=== PATIENT | male | born 1975 | race Caucasian/White ===

== ENCOUNTER 2016-10-21 11:25 | Emergency (ER) | payer OTHER ==
[~2016-10-21] VITALS: Ht 182.9 cm; Wt 81.8 kg
[~2016-10-21 11:25] MED LIST: AMOX500T PO; HYDR-3533 PO
[2016-10-21 11:26] VITALS: BP 129/72; PULSE 67; RESP 16; TEMP 97.8; O2SAT 98
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
[2016-10-21] MEDS ORDERED: ORPHENADRINE INJ 60 MG/2 ML AMP IM ONE (13:15)
[2016-10-21] MEDS ORDERED: KETOROLAC TROMETHAMINE 60 MG/2 ML (IM) VIAL IM ONE (13:15)
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
[2016-10-21] MEDS ORDERED: ROBA500T PO (14:36)
== END 2016-10-21 14:47 | disposition home or self-care (01) ==
LOC: NEPB 11:25
DX: S46.911A Strain of unspecified muscle, fascia and tendon at shoulder and upper arm level, right arm, initial encounter (principal); Z72.0 Tobacco use; V43.12XA Car passenger injured in collision with other type car in nontraffic accident, initial encounter; Y99.8 Other external cause status
CPT/HCPCS: 73030; 96372; 99283; J1885; J2360

== ENCOUNTER 2016-12-12 14:14 | Emergency (ER) | payer SELFPAY ==
[~2016-12-12] VITALS: Ht 182.9 cm; Wt 82.0 kg
[~2016-12-12 14:14] MED LIST changes: -AMOX500T PO; -HYDR-3533 PO; +ROBA500T PO
[2016-12-12 14:16] VITALS: BP 129/71; PULSE 78; RESP 20; TEMP 98.6; O2SAT 97
--- NOTE | 2016-12-12 14:20 | PD ---
Physical Exam Time Seen by Provider: 14:18 Narrative Pt presents to the emergency department for evaluation of skin lesions on right lower leg for 3 weeks. States symptoms are about the same over the past 3 weeks , there was some discharge however this has stopped. C/o pain at the site. Not on antibiotics. VSS. Patient awaiting bed placement. Data Data Last Documented VS Vital Signs Date Time Temp Pulse Resp B/P Pulse Ox O2 Delivery O2 Flow Rate FiO2 12/12/16 14:16 98.6 78 20 129/71 97 Room Air MDM Supervised Visit with JACE: Jocelyn Bui Dec 12, 2016 14:20
[2016-12-12] MEDS ORDERED: CLINDAMYCIN PHOS 900 MG/6 ML VIAL IM ONE (14:30)
--- NOTE | 2016-12-12 14:40 | PD ---
HPI Chief Complaint: Bite or Sting Time Seen by Provider: 14:34 Travel History International Travel<30 days: No Contact w/Intl Traveler<30days: No Traveled to known affect area: No History of Present Illness HPI Patient is a 41-year-old male presenting to the emergency room for evaluation of a possible insect bite, skin infection to his right lower leg. Patient believes he was bit by a spider 3 weeks ago. Initially it started out as small insect bites, patient states he picked at them and scratched them. After that they started to get larger, more tender, swollen and painful. Patient did not actually see himself get bit by a spider. He denies any fever, chills, nausea, vomiting, headache, shortness of breath. He reports the pain as an 8 out of 10 and describes the sore. Patient denies any IV drug use. Patient has been applying Neosporin and bandages to wounds, despite this the area has worsened PFSH Past Medical History Medical History: Denies Significant Hx Diminished Hearing: No Social History Alcohol Use: Yes Tobacco Use: Yes Substance Use: No Allergies-Medications (Allergen,Severity, Reaction): Coded Allergies: Ibuprofen (Verified Allergy, Unknown, 12/12/16) Reported Meds & Prescriptions Reported Meds & Active Scripts Active Tylenol-Codeine #3 (Acetaminophen-Codeine) 300-30 mg Tab 1 Tab PO Q4H PRN Mupirocin Topical (Mupirocin) 2 % Oint 1 Applic TOPICAL BID Keflex (Cephalexin) 500 Mg Cap 500 Mg PO Q12H 10 Days Bactrim DS (Sulfamethoxazole-Trimethoprim) 800-160 Mg Tab 1 Tab PO BID Robaxin (Methocarbamol) 500 Mg Tab 500 Mg PO QID PRN Review of Systems Except as stated in HPI: all other systems reviewed are Neg General / Constitutional: No: Fever, Chills HENT: No: Headaches Cardiovascular: No: Chest Pain or Discomfort Respiratory: No: Shortness of Breath Gastrointestinal: No: Nausea, Abdominal Pain Musculoskeletal: Positive: Myalgias, Edema, Pain Skin: Positive Change in Pigmentation, Positive Lesions Physical Exam Narrative GENERAL: Well-nourished, well-developed patient. SKIN: Focused skin assessment warm/dry. There are 2 blackened lesions to the lateral aspect of the right lower leg approximately 2 cm with surrounding induration. There is another 2 cm black area on the medial aspect of the right lower leg. Purulent drainage expressed from the site. Moderately tender to palpation and warm to touch around areas that are blackened. HEAD: Normocephalic. EYES: No scleral icterus. No injection or drainage. NECK: Supple, trachea midline. No JVD or lymphadenopathy. CARDIOVASCULAR: Regular rate and rhythm without murmurs, gallops, or rubs. RESPIRATORY: Breath sounds equal bilaterally. No accessory muscle use. GASTROINTESTINAL: Abdomen soft, non-tender, nondistended. MUSCULOSKELETAL: No cyanosis, edema noted to the right lower leg. Negative Homans sign. Patient is neurovascularly intact. BACK: Nontender without obvious deformity. No CVA tenderness. Data Data Last Documented VS Vital Signs Date Time Temp Pulse Resp B/P Pulse Ox O2 Delivery O2 Flow Rate FiO2 12/12/16 14:16 98.6 78 20 129/71 97 Room Air Orders Complete Blood Count With Diff (12/12/16 14:29) Wound Culture And Gram Stain (12/12/16 14:29) Tibia/Fibula (Ap/Lat) (12/12/16 ) Blood Culture (12/12/16 14:29) Basic Metabolic Panel (Bmp) (12/12/16 14:29) Sulfamet-Trimeth Ds 800-160 Mg (Bactrim (12/12/16 15:15) Cephalexin (Keflex) (12/12/16 15:15) Labs Laboratory Tests Test 12/12/16 15:05 White Blood Count 12.6 TH/MM3 Red Blood Count 5.54 MIL/MM3 Hemoglobin 17.5 GM/DL Hematocrit 51.4 % Mean Corpuscular Volume 92.8 FL Mean Corpuscular Hemoglobin 31.6 PG Mean Corpuscular Hemoglobin 34.1 % Concent Red Cell Distribution Width 13.9 % Platelet Count 242 TH/MM3 Mean Platelet Volume 8.4 FL Neutrophils (%) (Auto) 71.7 % Lymphocytes (%) (Auto) 14.5 % Monocytes (%) (Auto) 11.4 % Eosinophils (%) (Auto) 1.2 % Basophils (%) (Auto) 1.2 % Neutrophils # (Auto) 9.0 TH/MM3 Lymphocytes # (Auto) 1.8 TH/MM3 Monocytes # (Auto) 1.4 TH/MM3 Eosinophils # (Auto) 0.2 TH/MM3 Basophils # (Auto) 0.2 TH/MM3 CBC Comment DIFF FINAL Differential Comment Sodium Level 141 MEQ/L Potassium Level 4.1 MEQ/L Chloride Level 107 MEQ/L Carbon Dioxide Level 26.5 MEQ/L Anion Gap 8 MEQ/L Blood Urea Nitrogen 8 MG/DL Creatinine 1.11 MG/DL Estimat Glomerular Filtration 73 ML/MIN Rate Random Glucose 90 MG/DL Calcium Level 9.3 MG/DL MDM Medical Decision Making Medical Screen Exam Complete: Yes Emergency Medical Condition: Yes Interpretation(s) Vital Signs Date Time Temp Pulse Resp B/P Pulse Ox O2 Delivery O2 Flow Rate FiO2 12/12/16 14:16 98.6 78 20 129/71 97 Room Air Differential Diagnosis Cellulitis versus abscess versus osteomyelitis versus other Narrative Course Patient is a 41-year-old male presenting to the emergency department for evaluation of 3 weeks of worsening skin infection to his right lower leg secondary to possible insect bites. Patient was manipulating the insect bites after the first occurred likely causing a secondary bacterial infection. Purulent drainage expressed and a wound culture was obtained. We'll obtain a baseline CBC and blood cultures, patient will be given antibiotics in the emergency department. Patient is not at risk for DVT, there was negative Homans sign, despite swelling in the right ankle to lower calf area. Patient's vital signs are stable, he is afebrile currently. X-ray shows no soft tissue abnormality. There is a sclerotic lesion noted at the tibial metaphysis, radiologist recommending follow-up. CBC with a mildly elevated white count at 12.6 with left shift. Chemistry is unremarkable Patient was encouraged to return to emergency department for any new or worsening symptoms. He was advised to follow-up with a primary care provider. He was encouraged to complete full course of antibiotics as directed, elevate extremity, apply mupirocin ointment twice daily and cover with nonocclusive dressing. He was advised that if wound culture required a different antibiotic he would be notified. Additionally he was advised that blood cultures were positive he would be advised to return to emergency department. Patient verbalized understanding of these instructions. Patient is stable for discharge. Diagnosis Primary Impression: Cellulitis and abscess of leg Referrals: Primary Care Physician 1 week Patient Instructions: Cellulitis (ED), General Instructions Additional Instructions: Complete full course of antibiotics as directed Apply prescribed topical antibiotic ointment twice daily, keep wounds clean and dry, cover with nonocclusive dressing Return to emergency department for any new or worsening symptoms Follow-up with your primary doctor Follow-up with a primary doctor to have repeat imaging of your right lower leg performed due to a bony lesion noted on radiologist's report. Med/Other Pt SpecificInfo: Prescription(s) given Scripts Acetaminophen-Codeine (Tylenol-Codeine #3)300-30 mg Tab1 Tab PO Q4H PRN (PAIN) # 12 TAB Ref 0 Prov:Love Goodman MD 12/12/16 Mupirocin Topical 2 % Oint1 Applic TOPICAL BID #22 GM Ref 0 Prov:Michelle Pichardo 12/12/16 Cephalexin (Keflex)500 Mg [id number] Mg PO Q12H 10 Days Ref 0 Prov:Michelle Pichardo 12/12/16 Sulfamethoxazole-Trimethoprim (Bactrim DS)800-160 Mg Tab1 Tab PO BID #20 TAB Ref 0 Prov:Michelle Pichardo 12/12/16 Disposition: 01 DISCHARGE HOME Condition: Stable Michelle Pichardo Dec 12, 2016 14:40
[2016-12-12] MEDS ORDERED: SULFAMETHOXAZOLE-TRIMETHOPRIM DS 800-160 MG TAB PO ONE (15:15)
[2016-12-12] MEDS ORDERED: CEPHALEXIN MONOHYDRATE 500 MG CAP PO ONE (15:15)
[2016-12-12 15:18] LABS: BASOPHIL # 0.2 TH/MM3 (0-0.2); BASOPHIL % 1.2 % (0.0-2.0); EOSINOPHIL # 0.2 TH/MM3 (0-0.4); EOSINOPHIL % 1.2 % (0.0-4.0); HEMATOCRIT 51.4 % (39.0-51.0); HEMO FLAGS DIFF FINAL; LYMPH % 14.5 % (9.0-44.0); LYMPHOCYTE # 1.8 TH/MM3 (1.0-4.8); MEAN CELL VOLUME 92.8 FL (80.0-100.0); MEAN CORPUSCULAR HEMOGLOBIN 31.6 PG (27.0-34.0); MEAN CORPUSCULAR HGB CONC 34.1 % (32.0-36.0); MONO % 11.4 % (0.0-8.0); NEUT % 71.7 % (16.0-70.0); PLATELET COUNT 242 TH/MM3 (150-450); RED BLOOD COUNT 5.54 MIL/MM3 (4.50-5.90); RED CELL DISTRIBUTION WIDTH 13.9 % (11.6-17.2); WHITE BLOOD COUNT 12.6 TH/MM3 (4.0-11.0)
[2016-12-12] MEDS ORDERED: CEPH-460 PO (15:19)
[2016-12-12] MEDS ORDERED: MUPI2OIN TOPICAL (15:19)
[2016-12-12] MEDS ORDERED: BACT800T5 PO (15:19)
[2016-12-12 15:35] LABS: BICARBONATE 26.5 MEQ/L (21.0-32.0); POTASSIUM 4.1 MEQ/L (3.5-5.1)
[2016-12-12] MEDS ORDERED: TYLETAB34 PO (15:48)
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
== END 2016-12-12 16:27 | disposition home or self-care (01) ==
LOC: NEPK 14:14
DX: L02.415 Cutaneous abscess of right lower limb (principal); B95.0 Streptococcus, group A, as the cause of diseases classified elsewhere; B95.61 Methicillin susceptible Staphylococcus aureus infection as the cause of diseases classified elsewhere
CPT/HCPCS: 73590; 80048; 85025; 86403; 87040; 87070; 87186; 87205; 99283

== ENCOUNTER 2016-12-30 15:20 | Emergency (ER) | payer OTHER ==
[~2016-12-30] VITALS: Ht 182.9 cm; Wt 84.0 kg
[~2016-12-30 15:20] MED LIST changes: +BACT800T5 PO; +CEPH-460 PO; +MUPI2OIN TOPICAL; +TYLETAB34 PO
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
[2016-12-30] MEDS ORDERED: MORPHINE SULFATE 4 MG/ML INJ IV PUSH ONE (16:15)
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
[2016-12-30 17:32] VITALS: BP 125/70; PULSE 71; RESP 12; O2SAT 97
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
[2016-12-30 18:11] LABS: AUTOMATED NEUTROPHIL # 11.2 TH/MM3 (1.8-7.7); BASOPHIL # 0.1 TH/MM3 (0-0.2); BASOPHIL % 0.4 % (0.0-2.0); EOSINOPHIL # 0.1 TH/MM3 (0-0.4); EOSINOPHIL % 0.4 % (0.0-4.0); HEMATOCRIT 48.4 % (39.0-51.0); HEMO FLAGS DIFF FINAL; LYMPH % 17.9 % (9.0-44.0); LYMPHOCYTE # 2.9 TH/MM3 (1.0-4.8); MEAN CELL VOLUME 93.1 FL (80.0-100.0); MEAN CORPUSCULAR HEMOGLOBIN 31.5 PG (27.0-34.0); MEAN CORPUSCULAR HGB CONC 33.9 % (32.0-36.0); MONO % 12.2 % (0.0-8.0); NEUT % 69.1 % (16.0-70.0); PLATELET COUNT 197 TH/MM3 (150-450); RED CELL DISTRIBUTION WIDTH 13.2 % (11.6-17.2); WHITE BLOOD COUNT 16.2 TH/MM3 (4.0-11.0)
[2016-12-30 18:16] VITALS: BP 124/64; PULSE 70; RESP 15; O2SAT 99
[2016-12-30 18:22] LABS: APTT (PATIENT) 28.1 SEC (24.3-30.1); PROTHROMBIN TIME - PATIENT 10.5 SEC (9.8-11.6)
[2016-12-30 18:29] LABS: BICARBONATE 24.8 MEQ/L (21.0-32.0); POTASSIUM 3.7 MEQ/L (3.5-5.1)
[2016-12-30] MEDS ORDERED: IOHEXOL 350 MG/ML 10 ML VIAL (for RAD DIAG) IV ONE (19:08)
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
[2016-12-30 19:46] VITALS: BP 127/72; PULSE 78; RESP 17; O2SAT 98
[2016-12-30] MEDS ORDERED: HYDR-3533 PO (19:51)
[2016-12-30] MEDS ORDERED: CYCL5TAB PO (19:51)
--- NOTE | 2016-12-30 19:52 | PD ---
Data Data Last Documented VS Vital Signs Date Time Temp Pulse Resp B/P Pulse Ox O2 Delivery O2 Flow Rate FiO2 12/30/16 18:16 70 15 124/64 99 Room Air Orders Complete Blood Count With Diff (12/30/16 15:55) Basic Metabolic Panel (Bmp) (12/30/16 15:55) Act Partial Throm Time (Ptt) (12/30/16 15:55) Prothrombin Time / Inr (Pt) (12/30/16 15:55) Type And Screen (12/30/16 15:55) Ct Abd/Pel W Iv Contrast(Rout) (12/30/16 ) Ct Lumb Spine W/O Contrast (12/30/16 ) Knee, Complete (4vws) (12/30/16 ) Ankle, Complete (Mzo4bpd) (12/30/16 ) Ankle, Complete ([id number]) (12/30/16 ) Urinalysis - C+S If Indicated (12/30/16 16:10) Ct Brain W/O Iv Contrast(Rout) (12/30/16 ) Ct Cerv Spine W/O Contrast (12/30/16 ) Ct Facial Bones W/O Iv Cont (12/30/16 ) Chest, Pa & Lat (12/30/16 ) Morphine Inj (Morphine Inj) (12/30/16 16:15) Tibia/Fibula (Ap/Lat) (12/30/16 ) Iohexol 350 Inj (Omnipaque 350 Inj) (12/30/16 19:08) Labs Laboratory Tests Test 12/30/16 17:42 White Blood Count 16.2 TH/MM3 Red Blood Count 5.20 MIL/MM3 Hemoglobin 16.4 GM/DL Hematocrit 48.4 % Mean Corpuscular Volume 93.1 FL Mean Corpuscular Hemoglobin 31.5 PG Mean Corpuscular Hemoglobin 33.9 % Concent Red Cell Distribution Width 13.2 % Platelet Count 197 TH/MM3 Mean Platelet Volume 8.6 FL Neutrophils (%) (Auto) 69.1 % Lymphocytes (%) (Auto) 17.9 % Monocytes (%) (Auto) 12.2 % Eosinophils (%) (Auto) 0.4 % Basophils (%) (Auto) 0.4 % Neutrophils # (Auto) 11.2 TH/MM3 Lymphocytes # (Auto) 2.9 TH/MM3 Monocytes # (Auto) 2.0 TH/MM3 Eosinophils # (Auto) 0.1 TH/MM3 Basophils # (Auto) 0.1 TH/MM3 CBC Comment DIFF FINAL Differential Comment Prothrombin Time 10.5 SEC Prothromb Time International 1.0 RATIO Ratio Activated Partial 28.1 SEC Thromboplast Time Sodium Level 138 MEQ/L Potassium Level 3.7 MEQ/L Chloride Level 105 MEQ/L Carbon Dioxide Level 24.8 MEQ/L Anion Gap 8 MEQ/L Blood Urea Nitrogen 8 MG/DL Creatinine 0.96 MG/DL Estimat Glomerular Filtration 87 ML/MIN Rate Random Glucose 78 MG/DL Calcium Level 8.5 MG/DL Blood Type O POSITIVE Antibody Screen NEGATIVE Blood Bank Comment [facility] Medical Record Reviewed: Yes Supervised Visit with JACE: No Interpretation(s) Last Impressions Tibia/Fibula X-Ray 12/30/16 0000 Signed Impressions: Service Date/Time: Friday, December 30, 2016 16:26 - CONCLUSION: No definite fracture is seen for technique. Yasmin Mccullough MD Maxillofacial CT 12/30/16 0000 Signed Impressions: Service Date/Time: Friday, December 30, 2016 18:55 - CONCLUSION: No definite fracture is seen for technique. Yasmin Mccullough MD Lumbar Spine CT 12/30/16 0000 Signed Impressions: Service Date/Time: Friday, December 30, 2016 19:04 - CONCLUSION: Fracture of L3 transverse process on the right. Yasmin Mccullough MD Knee X-Ray 12/30/16 0000 Signed Impressions: Service Date/Time: Friday, December 30, 2016 16:27 - CONCLUSION: No definite fracture is seen for technique. Yasmin Mccullough MD Head CT 12/30/16 0000 Signed Impressions: Service Date/Time: Friday, December 30, 2016 18:55 - CONCLUSION: Unremarkable study. Yasmin Mccullough MD Chest X-Ray 12/30/16 0000 Signed Impressions: Service Date/Time: Friday, December 30, 2016 16:43 - CONCLUSION: No acute cardiopulmonary disease. Yasmin Mccullough MD Cervical Spine CT 12/30/16 0000 Signed Impressions: Service Date/Time: Friday, December 30, 2016 18:55 - CONCLUSION: Unremarkable study. Yasmin Mccullough MD Ankle X-Ray 4/30/17 0000 Signed Impressions: Service Date/Time: Friday, December 30, 2016 16:31 - CONCLUSION: Unremarkable study. Yasmin Mccullough MD Ankle X-Ray 12/30/16 Signed Impressions: Service Date/Time: Friday, December 30, 2016 16:29 - CONCLUSION: Unremarkable study. Yasmin Mccullough MD Abdomen/Pelvis CT 12/30/16 Signed Impressions: Service Date/Time: Friday, December 30, 2016 19:04 - CONCLUSION: Fracture of L3 transverse process on the right and bibasilar atelectasis and/or slight contusion. Yasmin Mccullough MD Narrative Course During the course of the patients emergency department visit, the patients history, examination, and differential diagnosis were reviewed with the patient. The patient had IV access obtained and blood work sent for analysis. The patient's case is checked out to me by Dr. Motley who requested that I review the patient's CT scan findings and disposition the patient. She felt that if the patient had no acute abnormality noted that the patient could be discharged home. The patient was initially provided morphine 4 mg IV for pain. The patients laboratory studies were reviewed and remarkable for a white count of 16.2, hemoglobin 16.4, platelets 97 with a monocytosis at 12.2, BMP is unremarkable, PT PTT within normal limits Radiology studies were reviewed and remarkable for a knee x-ray that showed no acute abnormality, tib-fib x-ray showed no acute abnormality. Ankle x-ray bilaterally showed no acute abnormality. Chest x-ray showed no acute cardiopulmonary disease, CT scan of the brain showed no acute abnormality, CT scan of the C-spine showed no acute abnormality. Maxillofacial CT showed no evidence of acute maxillofacial fracture or other abnormality. CT scan of the abdomen and pelvis shows a fracture of L3 transverse process on the right and bibasilar atelectasis and/or slight contusion, lumbar spine CT shows a fracture of L3 transverse process on the right. Given the patient's transverse process fracture the patient will be placed in an LSO for discomfort. The patient will be discharged home with a prescription for pain medication and a muscle relaxer. The patient was instructed regarding the importance of following up with a primary care physician for reexamination, and consideration of referral for physical therapy. Regarding the possibility of a pulmonary contusion, the patient has no evidence of respiratory distress with a respiratory rate that ranges from 12-15 and O2 saturations on room air that are 97 and 99%. I suspect that this is just atelectasis. The patient is resting comfortably and feels better, is alert and in no distress. The patients results and examination findings were discussed with the patient. The repeat examination is unremarkable and benign. The history, exam, diagnostic testing, and current condition do not suggest any significant pathology to warrant further testing, continued ED treatment, admission, or surgical evaluation at this point. The vital signs have been stable. The patient does not have uncontrollable pain, intractable vomiting, or other significant symptoms. The patient's condition is stable and appropriate for discharge. The patient will pursue further outpatient evaluation with a primary care physician or other designated or consulting physician as indicated in the discharge instructions. The patient expressed understanding and was agreeable with this plan. Referrals: Felisha Maldonado MD 2 days Primary Care Physician 2 days Patient Instructions: General Instructions, Narcotic given in the ED Departure Forms: Tests/Procedures, Work Release Enter return to work date: January 04, 2017 Med/Other Pt SpecificInfo: Prescription(s) given Scripts Cyclobenzaprine (Flexeril)5 Mg Tab5 Mg PO TID PRN (SPASM) #12 TAB Ref 0 Prov:Kayleen Marshall MD 12/30/16 Hydrocodone-Acetaminophen (Lortab)5-325 Mg Tab1 Tab PO Q6H PRN (PAIN) #12 TAB Ref 0 Prov:Kayleen Marshall MD 12/30/16 Disposition: 01 DISCHARGE HOME Condition: Stable Kayleen Marshall MD Dec 30, 2016 19:52
[2016-12-30] MEDS ORDERED: ACETAMINOPHEN/HYDROcodone 325 MG/5 MG TAB PO ONE (20:15)
== END 2016-12-30 20:40 | disposition home or self-care (01) ==
LOC: NEPE 15:20
DX: S32.039A Unspecified fracture of third lumbar vertebra, initial encounter for closed fracture (principal); S05.12XA Contusion of eyeball and orbital tissues, left eye, initial encounter; M79.606 Pain in leg, unspecified; F17.210 Nicotine dependence, cigarettes, uncomplicated; V03.10XA Pedestrian on foot injured in collision with car, pick-up truck or van in traffic accident, initial encounter
CPT/HCPCS: 70450; 70486; 71020; 72125; 72131; 73564; 73590; 73610; 74177; 80048; 85025; 85610; 85730; 86850; 86900; 86901; 96374; 99284; J2270; L0484; Q9967